=== PATIENT | female | born 1965 | race African-American/Black ===

== ENCOUNTER 2019-10-24 15:48 | Outpatient (CLI) | payer OTHER ==
--- NOTE | 2019-10-24 17:35 | ULT ---
Exam: Transabdominal and endovaginal pelvic ultrasound HISTORY:Pelvic pain. Peroneal pain. Menopausal female. COMPARISON: None TECHNIQUE: Transabdominal and endovaginal imaging of the pelvis is performed. Ovaries are interrogate d with grayscale, color flow, Doppler imaging and spectral wave form analysis FINDINGS: Uterus: Diffuse heterogeneity of the myometrium. Limited evaluation for myometrial masses. Uterus measurin.4 x 4.6 x 3.4 cm. Endometrium: Poorly visualized endometrial stripe. Endometrium diameter: Cannot be assessed due to poor visualization. . Free fluid: None Right ovary: Normal echotexture Right ovary measurement: 0.9 x 1.4 x 1.9 cm Left ovary: Nonvisualized. No obvious masses or fluid in the left adnexa. Ovarian Doppler: There is vascular flow to the right ovary. IMPRESSION: 1. Limited evaluation of the myometrium and endometrium. Consider pelvic MRI for better interrogation .
== END 2019-10-24 15:49 | disposition home or self-care (01) ==
LOC: ULT 15:48
PROVIDERS: ATTEND Family Medicine
DX: R10.2 Pelvic and perineal pain (principal)
CPT/HCPCS: 76856